=== PATIENT | male | born 2005 | race Two or more races ===

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

== ENCOUNTER 2024-07-09 14:32 | Emergency (ER) | payer OTHER ==
[2024-07-09 14:38] VITALS: BP 144/84; PULSE 66; RESP 18; BMI 32.5
[2024-07-09 15:19] VITALS: TEMP 102.5
[2024-07-09] MEDS ORDERED: ACETAMINOPHEN 500 MG TABLET (FP) ONE (15:26)
[2024-07-09] MEDS: ACETAMINOPHEN 500 MG TABLET (FP) PO ONE (15:28)
[2024-07-09 17:47] LABS: HIV INTERPRETATION NEGATIVE (NEGATIVE)
== END 2024-07-09 16:11 | disposition home or self-care (01) ==
LOC: JERFT 14:32
DX: S09.93XA Unspecified injury of face, initial encounter (principal); Y04.0XXA Assault by unarmed brawl or fight, initial encounter
CPT/HCPCS: 36415; 70150-TC-FY; 86803; 87389; 99283-25